=== PATIENT | female | born 1950 | race Caucasian/White ===

== ENCOUNTER 2017-06-12 23:38 | Inpatient (IN) | payer OTHER ==
[~2017-06-12] VITALS: Ht 170.2 cm; Wt 130.2 kg
[2017-06-13 00:48] LABS: HEMOGLOBIN 10.1 G/DL (11.9-15.5); MCH 27.9 PG (29.0-34.0); MCHC 30.6 G/DL (30.0-36.0); MCV 91.2 FL (83-99); RBC DIS.WIDTH-SD 54.4 % (39-53); RED BLOOD COUNT 3.62 M/uL (3.80-5.20); WHITE BLOOD COUNT 4.9 K/uL (4.1-10.2)
[2017-06-13 00:59] LABS: ALBUMIN 2.9 g/dL (3.2-4.8); CHLORIDE 99 mEq/L (99-109); POTASSIUM 4.7 mEq/L (3.7-5.4); SODIUM 139 mEq/L (136-147)
[2017-06-13 01:01] LABS: GLUCOSE 96 mg/dL (70-99); TOTAL PROTEIN 6.4 g/dL (6.4-8.3)
[2017-06-13 01:03] LABS: TOTAL BILIRUBIN 0.4 mg/dL (0.0-1.0)
[2017-06-13 01:05] LABS: ALKALINE PHOSPHATASE 124 IU/L (3-129); CREATININE 2.1 mg/dL (0.6-1.3); GFR ESTIMATE (CALCULATED) 25 mL/min/
[2017-06-13 01:06] LABS: UREA NITROGEN (BUN) 47 mg/dL (9-23)
[2017-06-13 01:07] LABS: AST (GOT) 97 IU/L (2-34)
[2017-06-13 01:08] LABS: ALT (GPT) 29 IU/L (3-49)
[2017-06-13 01:12] LABS: TROP-I INTERPRETATION NEGATIVE; TROPONIN-I 0.23 ng/mL (0.0-0.30)
[2017-06-13 02:17] LABS: BASOPHIL (%) 0 % (0-1); EOSINOPHIL (%) 0.4 % (0-5); LYMPHOCYTE (%) 26.5 % (15-42); LYMPHOCYTE COUNT 1.3 K/uL (1.0-2.8); MONOCYTE (%) 16.6 % (3-12); MONOCYTE COUNT 0.8 K/uL (0-0.8); NEUTROPHIL (%) 55.5 % (45-76); NEUTROPHIL COUNT 2.7 K/uL (1.8-6.4)
[2017-06-13 04:26] LABS: PLATELET COUNT 157 K/uL (156-360)
[2017-06-13 05:35] VITALS: BP 112/55
[2017-06-13 08:42] VITALS: BP 112/69
[2017-06-13 11:21] VITALS: BP 120/65
[2017-06-13] MEDS ORDERED: MILK OF MAGN PO (11:44)
[2017-06-13] MEDS ORDERED: SUPPOSITORY (11:45)
[2017-06-13] MEDS ORDERED: ENEMA (11:45)
[2017-06-13] MEDS ORDERED: IMDUR30 MG PO (11:48)
[2017-06-13] MEDS ORDERED: MORPHINE SULFAT15 M1 PO (11:49)
[2017-06-13] MEDS ORDERED: DIPROLENE 0.05%15 GM TP (11:51)
[2017-06-13] MEDS ORDERED: COREG6.25 M1 PO (11:51)
[2017-06-13] MEDS ORDERED: COLCRYS0.6 MG PO (11:52)
[2017-06-13] MEDS ORDERED: CILOSTAZOL50 MG PO (11:52)
[2017-06-13] MEDS ORDERED: FUROSEMIDE40 MG PO (11:53)
[2017-06-13] MEDS ORDERED: DUONEB 2.5-0.5 M3 ML AEROSOL (11:54)
[2017-06-13] MEDS ORDERED: NITROGLYCERIN0.4 MG SL (11:54)
[2017-06-13] MEDS ORDERED: TAMIFLU75 MG PO (11:57)
[2017-06-13] MEDS ORDERED: FLORASTOR250 MG PO (11:58)
[2017-06-13 15:34] VITALS: BP 111/54
[2017-06-13 20:30] VITALS: BP 107/44
[2017-06-13 23:40] VITALS: BP 136/69
[2017-06-14 04:33] VITALS: BP 118/52
[2017-06-14 05:12] LABS: CHLORIDE 101 mEq/L (99-109); POTASSIUM 4.9 mEq/L (3.7-5.4); SODIUM 142 mEq/L (136-147)
[2017-06-14 05:15] LABS: GLUCOSE 150 mg/dL (70-99); TOTAL PROTEIN 6.1 g/dL (6.4-8.3)
[2017-06-14 05:18] LABS: ALKALINE PHOSPHATASE 119 IU/L (3-129)
[2017-06-14 05:19] LABS: CREATININE 1.6 mg/dL (0.6-1.3); GFR ESTIMATE (CALCULATED) 34 mL/min/; TOTAL BILIRUBIN 0.3 mg/dL (0.0-1.0); UREA NITROGEN (BUN) 51 mg/dL (9-23)
[2017-06-14 05:20] LABS: AST (GOT) 59 IU/L (2-34)
[2017-06-14 05:21] LABS: ALT (GPT) 27 IU/L (3-49)
[2017-06-14 11:35] VITALS: BP 131/72
[2017-06-14 11:59] VITALS: BP 122/58
[2017-06-14 19:30] VITALS: BP 107/55
[2017-06-15 01:22] VITALS: BP 124/67
[2017-06-15 03:34] VITALS: BP 114/56
[2017-06-15 08:08] VITALS: BP 130/76
[2017-06-15 11:27] VITALS: BP 127/59
[2017-06-15 16:45] VITALS: BP 132/78
[2017-06-16 00:52] VITALS: BP 136/62
[2017-06-16 05:19] VITALS: BP 134/63
[2017-06-16 09:59] VITALS: BP 129/61
[2017-06-16 11:53] VITALS: BP 119/58
[2017-06-16 16:15] VITALS: BP 107/60
[2017-06-16 19:15] VITALS: BP 118/56
[2017-06-17 00:11] VITALS: BP 115/75
[2017-06-17 07:12] VITALS: BP 110/60
[2017-06-17 07:28] LABS: CHLORIDE 104 MEQ/L (99-109); CREATININE 1.3 MG/DL (0.6-1.3); GFR ESTIMATE (CALCULATED) 43 mL/min/; GLUCOSE 81 mg/dL (70-99); POTASSIUM 4.8 MEQ/L (3.7-5.4); SODIUM 144 MEQ/L (136-147); UREA NITROGEN (BUN) 37 mg/dL (9-23)
[2017-06-17 16:19] VITALS: BP 117/92
[2017-06-17] MEDS ORDERED: LISINOPRIL5 MG PO (16:31)
== END 2017-06-17 18:38 | DRG 191 ==
LOC: EME 23:38 → EDOF 06-13 03:35 → 5WEST 06-13 03:35 → ENRESERV 06-13 03:44 → 4EAST 06-13 05:14 → ENRESERV 06-14 08:04 → 5WEST 06-14 09:05
PROVIDERS: Emergency Medicine; Internal Medicine
DX: J44.1 Chronic obstructive pulmonary disease with (acute) exacerbation (principal); N17.9 Acute kidney failure, unspecified; I13.0 Hypertensive heart and chronic kidney disease with heart failure and stage 1 through stage 4 chronic kidney disease, or unspecified chronic kidney disease; Z68.42 Body mass index [BMI] 45.0-49.9, adult; I50.22 Chronic systolic (congestive) heart failure; F05 Delirium due to known physiological condition; J10.1 Influenza due to other identified influenza virus with other respiratory manifestations; N18.2 Chronic kidney disease, stage 2 (mild); I25.10 Atherosclerotic heart disease of native coronary artery without angina pectoris; E66.01 Morbid (severe) obesity due to excess calories; E78.5 Hyperlipidemia, unspecified; D63.8 Anemia in other chronic diseases classified elsewhere; I73.9 Peripheral vascular disease, unspecified; M17.0 Bilateral primary osteoarthritis of knee; R09.02 Hypoxemia; M10.9 Gout, unspecified; Z87.891 Personal history of nicotine dependence; Z95.0 Presence of cardiac pacemaker; Z87.440 Personal history of urinary (tract) infections; I25.2 Old myocardial infarction; Z79.51 Long term (current) use of inhaled steroids; Z82.49 Family history of ischemic heart disease and other diseases of the circulatory system
CPT/HCPCS: 71045; 80048; 80053; 80202; 81003; 83880; 84484; 85025; 87502; 93005; 93306; 94640; 94640 76; 94760; 94799; 99281; 99285; J1650; J1940; J2930; J7512